=== PATIENT | female | born 1995 | race Caucasian/White ===

== ENCOUNTER 2019-07-10 16:23 | Emergency (ER) | payer MEDICARE, MEDICAID, SELFPAY ==
--- NOTE | 2019-07-10 16:39 | ED.URI ---
HPI - URI/Sore Throat General Chief Complaint: Upper Respiratory Infection Stated Complaint: Sore Throat,Ear Pain Time Seen by Provider: 07/10/19 16:39 Source: patient and RN notes reviewed History of Present Illness HPI Narrative: Is a 24-year-old female presents the urgent care with complaints of left ear pain, sore throat, rash on bilateral legs. Patient states that she was seen at [place] when the rash on the leg started and they treated her for scabies. Patient states that she took the medication and use the cream as appropriate. Patient states that the left ear pain and sore throat started a couple weeks ago after having her teeth pulled. Patient states she saw an ENT at [facility] and they told her she had CRPS. Patient states that she does have a follow-up with him in a month or 2. No other acute complaints. Patient has not taken anything for her symptoms. Patient appears irritable and anxious. Patient aware of the plan of care. Related Data Home Medications Medication Instructions Recorded Confirmed aripiprazole 10 mg DAILY 07/10/19 07/10/19 benztropine 0.5 mg DAILY 07/10/19 07/10/19 buspirone 5 mg BID 07/10/19 07/10/19 hydroxyzine HCl 25 mg Q6-8H PRN 07/10/19 07/10/19 sertraline 100 mg DAILY 07/10/19 07/10/19 Allergies Allergy/AdvReac Type Severity Reaction Status Date / Time No Known Allergies Allergy Unknown Verified 07/10/19 16:27 Review of Systems Review of Systems: Narrative: CONSTITUTIONAL: Denies fever, chills, or sweats. EYES: Denies visual changes, redness, or discharge. ENT: Reports of sore throat and left otalgia CARDIOVASCULAR: Denies chest pain, palpitations, or edema. RESPIRATORY: Denies cough or dyspnea. GASTROINTESTINAL: Denies abdominal pain, nausea, vomiting, or diarrhea. GENITOURINARY: Denies dysuria or hematuria. SKIN: Reports of rash on bilateral legs and posterior bra line MUSCULOSKELETAL: Denies back pain, joint pain, or myalgia. NEUROLOGIC: Denies headache, numbness, or weakness. . [facility] Social History Social History Gender identity (if verbalized by the patient): Female Comments At the time of my signature, I reviewed and agree with the nursing past medical, surgical, social, and family history. There is no relevant family history pertinent to the patient complaint. Exam Narrative: Exam Narrative: GENERAL: This is a well-nourished, well-developed patient, in no apparent distress. HEAD: normocephalic, atraumatic. EYES: PERRL. Sclera clear/white. Vision is grossly intact. EARS: External ears normal, auditory canals clear and without drainage, TMs normal without perforation. Hearing grossly intact. NOSE: External nose normal with no obvious nasal discharge, nares without redness, no rhinorrhea. THROAT: Mucous membranes moist, posterior pharynx clear. NECK: Neck supple CARDIOVASCULAR: Regular rate and rhythm without murmurs, gallops, or rubs. RESPIRATORY: Clear to auscultation. Breath sounds equal bilaterally. No wheezes, rales, or rhonchi. SKIN: Mild papular lesions noted to bilateral legs. Mild erythemic papular lesions noted to posterior bra line?possible scabies. Warm, intact with no suspicious lesions or rash, good texture and turgor. NEURO: awake, alert, and oriented to person, place and time. There were no obvious focal neurologic abnormalities. EXTREMITIES: No clubbing, cyanosis, or edema. Course Vital Signs Vital signs: Vital Signs Temperature 97.8 F 07/10/19 16:40 Pulse Rate 110 H 07/10/19 16:40 Respiratory Rate 16 07/10/19 16:40 Blood Pressure 117/82 07/10/19 16:40 Pulse Oximetry 99 07/10/19 16:40 Temperature 97.8 F 07/10/19 16:40 Pulse Rate 110 H 07/10/19 16:40 Respiratory Rate 16 07/10/19 16:40 Blood Pressure 117/82 07/10/19 16:40 Pulse Oximetry 99 07/10/19 16:40 Reviewed MDM - URI/Sore Throat MDM Narrative Medical decision making narrative: Reviewed lab results with the patient. She is aware that strep swab was negative. E
[2019-07-10 16:40] VITALS: BP 117/82; PULSE 110; RESP 16; TEMP 36.6; O2SAT 99
== END 2019-07-10 17:00 | disposition home or self-care (01) ==
PROVIDERS: Emergency Provider Nurse Practitioner Family; PCP Family Medicine
DX: R21 Rash and other nonspecific skin eruption (principal); J02.9 Acute pharyngitis, unspecified; F41.9 Anxiety disorder, unspecified; F32.9 Major depressive disorder, single episode, unspecified
CPT/HCPCS: 87081; 87880; 99203; G0463

== ENCOUNTER 2021-05-24 09:02 | Outpatient (RCR) | payer OTHER, SELFPAY ==
[2021-05-24 11:00] LABS: Hematocrit 29.8 % (37.0-47.0); Hemoglobin 10.1 g/dL (12.0-15.0); Mean Corpuscular HGB Conc 33.9 g/dl (32-36); Mean Corpuscular Hemoglobin 32.7 pg (26-34); Mean Corpuscular Volume 96.4 fl (80-100); Mean Platelet Volume 10.1 fl (7.4-10.4); Platelet Count Result 252 k/mm3 (150-375); Red Blood Count 3.09 M/mm3 (4.2-5.4); Red Cell Distribution Width 13.8 % (11.5-14.5); White Blood Count 11.1 K/mm3 (4.5-10.0)
[2021-05-24 11:14] LABS: Glucose 1 Hour PP 50gm Dose 204 mg/dL
[2021-05-24 12:51] LABS: HIV 1/2 Ab P24 Ag Result Negative (Negative)
[2021-05-26] MEDS: RHO(D) IMMUNE GLOBULIN 300 MCG/2 ML SYRINGE IM (11:21)
== END 2021-08-22 23:59 | disposition home or self-care (01) ==
LOC: ANHLAB 09:02
PROVIDERS: PCP Family Medicine; Visit Provider Obstetrics & Gynecology
DX: Z11.4 Encounter for screening for human immunodeficiency virus [HIV] (principal); Z29.13 Encounter for prophylactic Rho(D) immune globulin; O36.0190 Maternal care for anti-D [Rh] antibodies, unspecified trimester, not applicable or unspecified; Z3A.00 Weeks of gestation of pregnancy not specified
CPT/HCPCS: 36415; 82947; 85027; 85461; 86703; 90384; 96372; G0432; J2790

== ENCOUNTER 2021-06-03 09:18 | Outpatient (RCR) | payer OTHER, SELFPAY | END 2021-08-24 10:21 | disposition home or self-care (01) | LOC: ANHDMC 09:18 | PROVIDERS: PCP Family Medicine; Visit Provider Obstetrics & Gynecology | DX: O24.419 Gestational diabetes mellitus in pregnancy, unspecified control (principal); Z71.89 Other specified counseling; Z3A.00 Weeks of gestation of pregnancy not specified | CPT/HCPCS: 99199; G0108 ==

== ENCOUNTER 2021-06-07 14:54 | Outpatient (RCR) | payer OTHER, SELFPAY ==
[2021-06-07 15:53] VITALS: BP 106/64; PULSE 111
== END 2021-09-05 23:59 | disposition home or self-care (01) ==
LOC: ANHOBOP 14:54
PROVIDERS: PCP Family Medicine; Visit Provider Obstetrics & Gynecology
DX: O36.8330 Maternal care for abnormalities of the fetal heart rate or rhythm, third trimester, not applicable or unspecified (principal); Z3A.30 30 weeks gestation of pregnancy
CPT/HCPCS: 59025

== ENCOUNTER 2021-07-01 13:49 | Outpatient (RCR) | payer OTHER, SELFPAY | END 2021-07-01 13:50 | disposition home or self-care (01) | LOC: ANHDMC 13:49 | PROVIDERS: PCP Family Medicine; Visit Provider Obstetrics & Gynecology | DX: O24.419 Gestational diabetes mellitus in pregnancy, unspecified control (principal); Z3A.00 Weeks of gestation of pregnancy not specified | CPT/HCPCS: 99199 ==

== ENCOUNTER 2021-07-12 10:34 | Inpatient (IN) | payer OTHER, SELFPAY ==
[2021-07-12] VITALS (9 sets, daily range): BP systolic 113–118; BP diastolic 58–82; PULSE 92–105; TEMP 36.9; BMI 27.3
--- NOTE | ~2021-07-12 | US_ITS ---
EXAMINATION: US OB limited w BPP DATE: 07/12/2021 12:05 INDICATION: Bleeding during third trimester TECHNIQUE: Real-time pelvic ultrasound was performed. The interpreting radiologist was not present fo r the study. COMPARISON: None. FINDINGS: There is a single living fetus in vertex presentation. The placenta is posterior. heart rate is 149 beats per minute (bpm). The amniotic fluid index is 19.3 cm which is normal. Biophysical profile performed by the technologist: breathing (30 sec sustained breathing in 30 minutes): 2 out of 2 movement (3 gross body movements in 30 minutes): 2 out of 2 tone (one episode of yspyefl-lsuiekbyy-dzwrsvh limb movement): 2 out of 2 Amniotic fluid pocket (2 cm): 2 out of 2 Total score: 8 out of 8 IMPRESSION: 1. Single living fetus in vertex presentation. 2. Biophysical profile 8 out of 8. 3. Normal amniotic fluid index. Reviewed, dictated and finalized at location B. ER MACHINE
--- NOTE | 2021-07-12 10:54 | OBADM ---
This patient, Yara Avalos, admitted to the OB room OB Post 116 for observation. Patient/family oriented to hospital policies and general routines including ID bracelet, bed and alarms, visiting hours, pain management, procedures, bathroom and other care routines, personal items, smoking policy, room service/diet, and visiting hours. Patient/Family are encouraged to report perceived risks to care and to ask questions if they do not understand what they are told or what they should do.
--- NOTE | 2021-07-12 12:33 | PC.NURSE ---
1200- MD on unit. US reviewed. Orders to continuously monitor until 1500.
[2021-07-12] MEDS: LACTATED RINGERS 1,000 ML 125 ML IV CONT ×3 (15:11→23:30)
[2021-07-12] MEDS: BETAMETHASONE SOD PHOS/ACETATE 30 MG/5 ML VIAL 12 MG IM (15:12)
[2021-07-12] MEDS: AMPICILLIN 2 GM/NS 100 ML 2 GM/100 ML BAG IVPB (15:12)
--- NOTE | 2021-07-12 17:27 | PM.IMHP ---
H&P: HPI History of Present Illness Date/Time: 07/12/21 17:27 Yara is a 26yo @ 35.0wks (CRISTIAN 08[birth year]16[birth year]) who was sent to L&D from clinic. She was endorsing contractions/back pains. She had been taking ibuprofen to help with her pain. Her cervix was checked and she was found to be 1.5/75/-3. After the exam, she was found to have vaginal bleeding. She was sent to L&D for urgent US for placenta check/ANTHONY/BPP (all normal). She was placed on NST and found to have a severe variable decel to 60's lasting 1-2 minutes. She has continued to have contractions and had occasional variable and late decelerations. She was given betamethasone and started on ampicillin. She initially was not wantint to stay overnight for monitoring and did threaten to leave AMA. She was in pain and took one of her home doses of klonopin. She has been co-managed with [facility]; has been counseled on medications (supposed to be taking zoloft, buspar, and weaning down to the least doses of klonopin). She has had normal growths. Her is complicated by: - Severe bipolar disorder and anxiety; on zoloft 100mg, klonopin 1mg daily PRN, buspar 5mg TID - Gestational diabetes; unknown control; has not been checking sugars and missed DM educator appts - Rh negative; s/p rhogam Chief Complaint: vaginal bleeding Review of Systems Review of Systems: All systems reviewed & are unremarkable except as noted in HPI and below (HPI) [facility] Past Medical History Medical History Anxiety Bipolar 1 disorder Heart palpitations History of ovarian cyst IBS (irritable bowel syndrome) Surgical History Surgical History History of endoscopy [place] teeth extracted Social History Social History Smoking status: Current every day smoker Tobacco type: cigarettes Alcohol intake: never Substance use: never Gender identity (if verbalized by the patient): Female Sexual Orientation (if Verbalized by the Patient): Straight or Heterosexual Meds Home Medications and Allergies Home Medications Medication Instructions Recorded Confirmed Type aripiprazole 5 mg PO DAILY 07/10/19 07/12/21 History benztropine 0.5 mg DAILY 07/10/19 07/12/21 History buspirone 5 mg PO BID 07/10/19 07/12/21 History hydroxyzine HCl 25 mg Q6-8H PRN 07/10/19 07/12/21 History sertraline 100 mg DAILY 07/10/19 07/12/21 History Allergies Allergy/AdvReac Type Severity Reaction Status Date / Time No Known Allergies Allergy Unknown Verified 07/12/21 09:37 Vital Signs Vital Signs - 24 hr 07/12/21 10:52 07/12/21 11:00 07/12/21 11:15 Pulse Rate 105 H 104 H 101 H Blood Pressure 115/80 118/75 113/75 07/12/21 11:30 07/12/21 11:45 07/12/21 12:00 Pulse Rate 103 H 101 H 92 Blood Pressure 114/82 116/80 116/75 Exam Const: General: alert, awake, Physically active, anxious and uncomfortable Resp: Effort & Inspection: normal respiratory effort Cardio: Rate: regular rate GI: Inspection: non-distended GI Palp: No abdominal tenderness and Yes Soft to palpation : Other: FHT's: 135's/ mod charisma/ + accels/ occasional severe variable decels - cat 2 TOCO: ctx's q1-2 min Cervix: 1.5/75/-3-- small amount of blood noted on glove Membranes: intact Presentation: cephalic Skin: General skin exam: normal color Neuro: General: patient oriented x3 Extrem: General: normal to inspection Psych: Affect: Labile affect present and Anxious affect present Assessment and Plan Assessment and plan (1) Vaginal bleeding during : Code(s): O46.90 - Antepartum hemorrhage, unspecified, unspecified trimester Status: Acute (2) contractions: Code(s): O47.00 - False labor before 37 completed weeks of gestation, unspecified trimester Status: Acute Additional Plan - Vaginal bleeding has since stopped, US wa
--- NOTE | 2021-07-12 17:49 | WPDHPUPDATE1 ---
History and Physical Update Update Date/Time: 07/12/21 17:49 History and Physical has been reviewed, including an updated exam of the patient. There are NO changes in the patient's condition. Risks, benefits, and alternatives have been discussed and questions answered. Patient agrees to proceed with procedure.
[2021-07-12] MEDS: TERBUTALINE SULFATE 1 MG/ML VIAL 0.25 MG SUB-Q (17:55)
[2021-07-12] MEDS: AMPICILLIN 1 GM/NS 50 ML 1 GM/50 ML BAG IVPB ×2 (19:23→23:30)
[2021-07-12] MEDS: SERTRALINE HCL 50 MG TABLET 100 MG PO (23:30)
[2021-07-13] VITALS (67 sets, daily range): BP systolic 97–129; BP diastolic 59–73; PULSE 48–118; RESP 14–18; TEMP 36.2–36.7; O2SAT 95–100
[2021-07-13] MEDS: busPIRone HCL 5 MG TABLET PO ×2 (03:30→17:20)
[2021-07-13] MEDS: AMPICILLIN 1 GM/NS 50 ML 1 GM/50 ML BAG IVPB (05:26)
[2021-07-13] MEDS: LACTATED RINGERS 1,000 ML 125 ML IV CONT (07:00)
--- NOTE | 2021-07-13 07:00 | PM.OBPNLAB ---
Pain Control Date/time seen: 07/13/21 06:52 Pain control: tolerating well Contractions Monitor mode: External Contraction frequency: 1 (-4) Contraction pattern: Irregular Status status: Category ll Comments: Pt had a prolonged decel lasting 8 minutes down to 70's, with occasional late decelerations throughout the night Assessment and Plan Plan: Comments: - plan to proceed with pLTCS due to intolerance - s/p betamethasone x2 - ampicillin has continued overnight
--- NOTE | 2021-07-13 07:16 | WPDANESEPPF ---
Anes - Initial Pre Proc Eval Date/Time: 07/13/21 07:16 Surgeon: Malissa Houston MD Pre Op Diagnosis: bleeding Patient Data Age: 26 Gender: F Height: 1.6 m Weight: 70 kg Last Vital Signs Temp 36.9 C 07/12/21 23:30 Pulse 102 H 07/12/21 23:50 BP 117/58 L 07/12/21 23:50 Allergies Allergy/AdvReac Type Severity Reaction Status Date / Time No Known Allergies Allergy Unknown Verified 07/12/21 09:37 Home Medications Medication Instructions Recorded Confirmed Type aripiprazole 5 mg PO DAILY 07/10/19 07/12/21 History benztropine 0.5 mg DAILY 07/10/19 07/12/21 History buspirone 5 mg PO BID 07/10/19 07/12/21 History hydroxyzine HCl 25 mg Q6-8H PRN 07/10/19 07/12/21 History sertraline 100 mg DAILY 07/10/19 07/12/21 History Laboratory Tests 07/13/21 07/13/21 07:09 07:09 WBC Pending RBC Pending Hgb Pending Hct Pending MCV Pending MCH Pending MCHC Pending RDW Pending Plt Count Pending MPV Pending Immature Gran % (Auto) Pending Neut % (Auto) Pending Lymph % (Auto) Pending [place] % (Auto) Pending Eos % (Auto) Pending Baso % (Auto) Pending Lymph # (Auto) Pending [place] # (Auto) Pending Eos # (Auto) Pending Baso # (Auto) Pending Abs Immat Gran (auto) Pending Absolute Neuts (auto) Pending Absolute Nucleated RBC Pending Nucleated RBC % Pending RPR Pending Patient hx anesthesia problems: none Family hx anesthesia problems: none Results Review: All pre-operative results and documents have been reviewed as part of the pre-operative evaluation. [facility] Past Medical History Medical History Anxiety Bipolar 1 disorder Heart palpitations History of ovarian cyst IBS (irritable bowel syndrome) Surgical History Surgical History History of endoscopy [place] teeth extracted Social History Social History Smoking status: Current every day smoker Tobacco type: cigarettes Alcohol intake: never Substance use: never Gender identity (if verbalized by the patient): Female Sexual Orientation (if Verbalized by the Patient): Straight or Heterosexual Anes - Eval Final PreProcedure Day of Procedure 07/13/21 07:16 Patient weight: overweight Heart: regular rate and rhythm Lungs: clear to auscultation Airway: Mallampati scale class II Neurological: alert and oriented Last oral intake: >/= 8 hours ASA classification: III Emergent: no Anesthetic plan: proceed Anesthesia type and monitoring: regional spinal and standard monitoring Results Review: All pre-operative results and documents have been reviewed as part of the pre-operative evaluation. Informed Consent: The patient's anesthetic plan and its attendant risks and benefits were discussed with the patient/family/POA. Questions were solicited and answers provided to the satisfaction of the patient/family/POA.
[2021-07-13 07:18] LABS: Basophils Absolute Auto 0.1 K/mm3 (0.0-0.1); Basophils Percent Auto 0.4 % (0.2-1.2); Eosinophils Absolute Auto 0.3 K/mm3 (0-0.3); Eosinophils Percent Auto 2.9 % (0-4.4); Hematocrit 35.6 % (37.0-47.0); Hemoglobin 11.3 g/dL (12.0-15.0); Immature Granulocyte Absolute 0.05 K/mm3 (0.00-0.031); Immature Granulocyte Percent A 0.4 % (0-0.5); Lymphocytes Absolute Auto 1.99 K/mm3 (0.9-3.2); Lymphocytes Percent Auto 17.7 % (18.3-44.2); Mean Corpuscular HGB Conc 31.7 g/dl (32-36); Mean Corpuscular Hemoglobin 32.4 pg (26-34); Mean Platelet Volume 11.9 fl (7.4-10.4); Monocytes Absolute Auto 1.3 K/mm3 (0.1-0.6); Monocytes Percent Auto 11.2 % (2.6-8.5); Neutrophils Absolute Auto 7.6 K/mm3 (1.3-6.7); Neutrophils Percent Auto 67.4 % (45.5-73.1); Platelet Count Result 225 k/mm3 (150-375); Red Blood Count 3.49 M/mm3 (4.2-5.4); Red Cell Distribution Width 13.5 % (11.5-14.5); White Blood Count 11.2 K/mm3 (4.5-10.0)
[2021-07-13] MEDS: ceFAZolin 2 GM/D5W 50 ML 2 GM/50 ML BAG IVPB (07:35)
[2021-07-13 07:36] LABS: Glucose Point of Care 87 mg/dl (65-105)
[2021-07-13 07:50] LABS: Amphetamine Screen Urine Positive (Negative); Barbiturate Screen Urine Negative (Negative); Benzodiazepines Screen Urine Positive (Negative); Cannabinoid Screen Urine Negative (Negative); Cocaine Screen Urine Negative (Negative); Methadone Screen Urine Negative (Negative); Opiate Screen Urine Negative (Negative); Phencyclidine Screen Urine Negative (Negative)
--- NOTE | 2021-07-13 08:33 | LDADM ---
This patient, Yara Avalos, was admitted to OB Post 116 on 07/13/21 at 07:07. Plans for labor, pain management and were discussed with patient. Patient/family oriented to hospital policies and general routines including ID bracelet, bed and alarms, visiting hours, pain management, procedures, bathroom and other care routines, personal items, smoking policy, room service/diet and guest tray routines, infant security routines, and visiting hours. Patient/Family are encouraged to report perceived risks to care and to ask questions if they do not understand what they are told or what they should do. See OBIX for further documentation.
--- NOTE | 2021-07-13 08:45 | PM.OBPRVD ---
OB - Delivery Note Procedure Delivery date: 07/13/21 Procedure: Procedures Operation Date: 07/13/21 07:30 <No data on this case meets the specified criteria> events: Labor < 37 Weeks (+ vaginal bleeding ) and Placental Insufficiency (prolonged and late decelerations) Delivery monitor: external FHT and external uterine Route of delivery: Indication for instrumentation: nonreassuring FHR tracing Specimen: Yes (placenta) Quantitative Blood Loss (ml): 340 Anesthesia type: Spinal Disposition: floor Baby Date of : 07/13/21 Time of : 07:55 Weeks of gestation at delivery: 35 (.1) gender: Male Weight (pounds): 5 Weight (ounces): 9 presentation: vertex position: Left Occiput Transverse Placenta delivery description: Expressed (concerns for marginal placenta abruption) cord vessel description: 3 Vessels score one minute: 7 score five minutes: 9 Narrative: She was counseled on all risks and benefits in detail. She was taken to the operating room where spinal epidural was placed. She was then prepped and draped in the normal sterile fashion. She received 2g Ancef and a time out was performed. A Pfannenstiel incision was made in the skin and carried down to the underlying fascia. The fascia was nicked on either side of the midline and the fascial incision was extended laterally and superiorly. The fascia was then elevated and the underlying rectus muscles were dissected off the fascia, superiorly and inferiorly. The rectus muscles were then in the midline and the peritoneum was entered bluntly. Once adequate exposure was obtained, a Mobius self retractor was placed within the abdomen. A bladder flap was created. A low transverse incision was made on the lower uterine segment and clear fluid was noted. The occiput was brought to the hysterotomy and the head was easily delivered. The shoulder and body then followed without complications. The had spontaneous cry and the mouth and nose were bulb suctioned. The cord was clamped and cut and the was handed off to the awaiting pediatric nurse. A segment of the cord was collected for cord gases. The remaining cord blood was collected for typing. With pitocin infusing, the placenta delivered with gentle traction on the cord without complications, the posterior edge was found to be low into the lower posterior uterus and delivered first (concern for abruption). The uterus was then cleared out of all clots and debris using a clean, moist lap. The hysterotomy was then repaired in a running fashion using 0 Vicryl. A second layer imbricating suture was then made using 0 Vicryl. The hysterotomy was found to be hemostatic and good uterine tone was noted. The bilateral adnexa were examined and found to be normal. The pelvis was cleared of all clots and fluid. The Mobius retractor was removed from the abdomen. The peritoneum, muscle, and fascia were examined and made hemostatic with bovie cautery. The fascia was then repaired using a 0 Vicryl suture in a running fashion. The subcutaneous tissue was then irrigated and made hemostatic with bovie cautery. The subcutaneous tissue was then reapproximated using 2-0 Vicryl. The skin was then closed using 4-0 Monocryl in a running subcuticular fashion. Sponge, lap, needle and instrument counts were correct at the end of the procedure x2. The patient tolerated the procedure well and was taken to recovery in a stable condition. [facility] Delivery Billing Delivery Delivery: Delivery Charge
[2021-07-13] MEDS: OXYTOCIN 30 UNITS/NS 500 ML 30 UNITS/500 ML BAG 125 UNITS IV CONT (09:16)
[2021-07-13] MEDS: DOCUSATE SODIUM 100 MG CAPSULE PO (11:12)
[2021-07-13] MEDS: KETOROLAC 30 MG/ML VIAL (*BKC) IV PUSH ×2 (11:14→18:01)
--- NOTE | 2021-07-13 11:43 | PC.NURSE ---
Patient transferred to post room #291 via stretcher. Support person present. Oriented to unit, room, information board, rooming in, admission packet and security measures. Patient verbalizes understanding.
[2021-07-13] MEDS: DEXTROSE 5%/0.45% SOD CHL 1,000 ML 125 ML IV CONT (13:24)
--- NOTE | 2021-07-13 16:17 | PCCCNOTE ---
Addendum entered by JENNI Mae 07/16/21 11:05: Spoke to Yuli with DCFS this morning. Home visit and interviews with family have taken place. DCFS will continue to follow for resources/services at home. Yuli indicates at this time, that baby should discharge home with Mother at expected discharge tomorrow on 07/17/21. Spoke with RNTsering to notify of above. Addendum entered by JENNI Mae 07/16/21 07:56: Intake ID#[id number] Original Note: SS consult. Received referral for positive UDS. Pt. is positive for amphetamines and benzodiazepines. She is on zoloft, klonopin and buspar prescribed by her PMD, Dr. Santiago and Psychiatrist, Dr. Garduno at [facility] for bipolar and anxiety diagnosis. She does follow up with Psychiatrist every 3 months [address] [facility] once a month. She denies use of any other substances or unprescribed medications that may cause amphetamine positive. She does indicate having been around her cousin a lot recently who smokes meth. She does indicate to nursing that her cousin takes Aterol. She has no other children. She denies any DCFS history. She lives with her mother and father as well as father of baby. She states all being supportive. She states having all needed items to care for baby at home. Reported pt. situation to DCFS. Spoke to Jona with DCFS. Liliam with DCFS to be present at hospital [place] [facility] to meet with pt. Following.
[2021-07-13 16:49] LABS: Rapid Plasma Reagin Non-Reactive (NonReactive)
[2021-07-13] MEDS: MULTIVIT/MIN/PREN/FOL AC/IRON TABLET 1 TAB PO (17:21)
[2021-07-13] MEDS: hydrOXYzine HCL 25 MG TABLET PO (17:55)
[2021-07-13] MEDS: clonazePAM (*CRX) 0.5 MG TABLET 1 MG PO (17:55)
[2021-07-14 01:11] VITALS: BP 92/51; PULSE 95; RESP 18; TEMP 36.6
[2021-07-14] MEDS: KETOROLAC 30 MG/ML VIAL (*BKC) IV PUSH (03:54)
[2021-07-14 04:00] VITALS: BP 100/55; PULSE 78; RESP 18; TEMP 36.6
[2021-07-14] MEDS: SERTRALINE HCL 50 MG TABLET 100 MG PO ×2 (04:04→21:05)
[2021-07-14 05:41] LABS: Basophils Percent Auto 0.1 % (0.2-1.2); Hematocrit 27.1 % (37.0-47.0); Immature Granulocyte Absolute 0.15 K/mm3 (0.00-0.031); Immature Granulocyte Percent A 0.7 % (0-0.5); Lymphocytes Absolute Auto 1.81 K/mm3 (0.9-3.2); Lymphocytes Percent Auto 8.7 % (18.3-44.2); Mean Corpuscular HGB Conc 33.2 g/dl (32-36); Mean Corpuscular Volume 99.3 fl (80-100); Mean Platelet Volume 12.3 fl (7.4-10.4); Monocytes Absolute Auto 1.6 K/mm3 (0.1-0.6); Monocytes Percent Auto 7.8 % (2.6-8.5); Neutrophils Absolute Auto 17.3 K/mm3 (1.3-6.7); Neutrophils Percent Auto 82.7 % (45.5-73.1); Platelet Count Result 221 k/mm3 (150-375); Red Blood Count 2.73 M/mm3 (4.2-5.4); White Blood Count 20.9 K/mm3 (4.5-10.0)
--- NOTE | 2021-07-14 07:28 | PM.OBPNVD ---
OB - PN: Subj Subjective Date/time seen: 07/14/21 07:28 Narrative: POD#1 Yara reports doing well today. Her bleeding is manager of sustainability. Her pain is controlled. She is passing gas. She has not attempted regular diet yet; plans to order breakfast. She just had her ryan removed at 0500 she has not voided or ambulated yet. She denies any issues with her incision. She is bottle feeding. She would like her son circumcised. OB - PN: Obj Data Labs CBC & Chem 7: 07/14/21 04:01 Labs: Laboratory Results - last 24 hr 07/13/21 07/13/21 07/13/21 07:09 07:09 07:10 WBC RBC Hgb Hct MCV MCH MCHC RDW Plt Count MPV Immature Gran % (Auto) Neut % (Auto) Lymph % (Auto) [place] % (Auto) Eos % (Auto) Baso % (Auto) Lymph # (Auto) [place] # (Auto) Eos # (Auto) Baso # (Auto) Abs Immat Gran (auto) Absolute Neuts (auto) Absolute Nucleated RBC Nucleated RBC % POC Capillary Glucose Urine Opiates Screen Negative Urine Methadone Screen Negative Ur Barbiturates Screen Negative Ur Phencyclidine Scrn Negative Ur Amphetamine Screen Positive A U Benzodiazepines Scrn Positive A Urine Cocaine Screen Negative U Cannabinoids Screen Negative RPR Non-reactive Blood Type A Negative Antibody Screen Positive Antibody Identification Passive Due to RH Imm Glob Antigen Identification TNP ALFREDO, IgG Interpret Not Performed ALFREDO, Poly Interpret Negative ALFREDO, Complement Interp Not Performed 07/13/21 07/14/21 07/14/21 07:32 04:01 04:01 WBC 20.9 H RBC 2.73 L Hgb 9.0 L Hct 27.1 L MCV 99.3 MCH 33.0 MCHC 33.2 RDW 13.0 Plt Count 221 MPV 12.3 H Immature Gran % (Auto) 0.7 H Neut % (Auto) 82.7 H Lymph % (Auto) 8.7 L [place] % (Auto) 7.8 Eos % (Auto) 0.0 Baso % (Auto) 0.1 L Lymph # (Auto) 1.81 [place] # (Auto) 1.6 H Eos # (Auto) 0.0 Baso # (Auto) 0.0 Abs Immat Gran (auto) 0.15 H Absolute Neuts (auto) 17.3 H Absolute Nucleated RBC 0.0 Nucleated RBC % 0.0 POC Capillary Glucose 87 Urine Opiates Screen Urine Methadone Screen Ur Barbiturates Screen Ur Phencyclidine Scrn Ur Amphetamine Screen U Benzodiazepines Scrn Urine Cocaine Screen U Cannabinoids Screen RPR Blood Type A Negative Antibody Screen TNP Antibody Identification Antigen Identification ALFREDO, IgG Interpret ALFREDO, Poly Interpret ALFREDO, Complement Interp OB - PN A/P Assessment and Plan (1) S/P primary low transverse : Code(s): Z98.891 - History of uterine scar from previous surgery Status: Acute Plan Plan: routine care Comments: - Pt to attempt to void at 0900 - regular diet; stay hydrated - continue home meds/pain meds - ambulation encouraged - consult with care coordination/DCFS pending Time Spent With Patient Time: Total time spent is greater than 50% in coordination of care (as documented) at patient's floor/unit and/or counseling patient: Review of Systems Constitutional: Constitutional: Denies chills, Denies fever(s) and Denies headache(s) Eyes: Eyes: Denies change in vision ENT: Denies dizziness and Denies headache(s) Cardiovascular: Cardiovascular: Denies chest pain, Denies palpitations and Denies dyspnea Respiratory: Respiratory: Denies cough and Denies dyspnea Gastrointestinal: Gastrointestinal: Denies nausea and Denies vomiting Genitourinary: Comments: normal bleeding Neurologic: Denies dizziness and Denies headache(s) Endocrine: Endocrine: Denies palpitations Exam Const: General: cooperative, comfortable and no acute distress Orientation/consciousness: patient oriented x3 Resp: Effort & Inspection: normal respiratory effort Auscultation: clear to auscultation bilaterally Cardio: Rate: regular rate GI: Inspection: non-distended and incision (covered with iggy
[2021-07-14 07:35] VITALS: BP 106/54; PULSE 75; RESP 16; TEMP 37.3; O2SAT 98
--- NOTE | 2021-07-14 07:40 | WPDANLDPN2 ---
Anes-Prog Note L&D Date/Time: 07/14/21 07:40 Comfortable throughout: section Neuraxial method: spinal Epidural/Spinal procedure site: clean & non-tender Neuro status: Neuro function grossly intact. Cardiovascular status: normal Respiratory status: normal Airway patency: baseline Mental status: baseline Post-Op hydration status: normal Vital Signs: Last Vital Signs Temp 97.9 F 07/14/21 04:00 Pulse 78 07/14/21 04:00 Resp 18 07/14/21 04:00 BP 100/55 L 07/14/21 04:00 Pulse Ox 98 07/13/21 15:45 Pain score (VAS): 0 I/O: Intake & Output 07/13/21 07/13/21 07/14/21 15:59 23:59 07:59 Intake Total 550 Output Total 1362 Balance -812 Post-procedural complaints: none Patient feedback: Patient satisfied with anesthetic care.
--- NOTE | 2021-07-14 07:41 | WPDANLDNPN2 ---
Anes-Prog Note L&D-Neuraxial Date/Time: 07/14/21 07:41 Neuraxial medications: intrathecal PF morphine Opiod-related complaints: none Patient feedback: Patient satisfied with post-operative pain management.
[2021-07-14 08:00] VITALS: PULSE 75; RESP 16; O2SAT 98
[2021-07-14] MEDS: IBUPROFEN 600 MG TABLET PO ×2 (09:59→16:04)
[2021-07-14] MEDS: HYDROcodone/acetaminophen (*CRX) 5-325 MG TABLET 1 TAB PO (10:00)
[2021-07-14] MEDS: DOCUSATE SODIUM 100 MG CAPSULE PO ×2 (10:01→17:38)
[2021-07-14] MEDS: busPIRone HCL 5 MG TABLET PO ×2 (10:05→17:38)
[2021-07-14] MEDS: POLYSACCHARIDE IRON COMPLEX 150 MG CAPSULE PO ×2 (10:29→17:38)
--- NOTE | 2021-07-14 12:58 | PC.NURSE ---
Hector Torres, [facility], arrived and spoke with patient regarding testing positive for Amphetamines. Patient lives with mother and father of baby. Primary utilities service investigator with [facility] is Liliam Silva. She or Hector will be in contact with Care Coordination with regard to discharge of baby. [facility] will be doing a house check and interview with those living in home.
[2021-07-14] MEDS: HYDROcodone/acetaminophen (*CRX) 10-325 MG TABLET 1 TAB PO ×2 (16:08→21:05)
[2021-07-14] MEDS: clonazePAM (*CRX) 0.5 MG TABLET 1 MG PO (17:38)
[2021-07-14 19:45] VITALS: BP 106/47; PULSE 95; RESP 16; TEMP 36.8
[2021-07-15] MEDS: HYDROcodone/acetaminophen (*CRX) 10-325 MG TABLET 1 TAB PO ×3 (04:30→15:54)
[2021-07-15] MEDS: IBUPROFEN 600 MG TABLET PO ×3 (04:30→19:50)
[2021-07-15] MEDS: MULTIVIT/MIN/PREN/FOL AC/IRON TABLET 1 TAB PO (07:27)
[2021-07-15] MEDS: POLYSACCHARIDE IRON COMPLEX 150 MG CAPSULE PO ×2 (07:27→15:54)
[2021-07-15] MEDS: DOCUSATE SODIUM 100 MG CAPSULE PO ×2 (07:27→15:54)
[2021-07-15] MEDS: busPIRone HCL 5 MG TABLET PO ×2 (07:27→21:00)
[2021-07-15] MEDS: RHO(D) IMMUNE GLOBULIN 300 MCG/2 ML SYRINGE IM (07:28)
[2021-07-15 08:50] VITALS: BP 114/70; PULSE 72; RESP 16; TEMP 37.2; O2SAT 97
--- NOTE | 2021-07-15 09:57 | P.PNOB_ITS ---
OB - PN: Subj Subjective Date/time seen: 07/15/21 09:57 Narrative: POD#2 Yara reports doing well today. 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 Her pain is controlled. She is tolerating regular diet, voiding, passing gas, and ambulating without issues. She denies any issues with her incision. She is bottle feeding. OB - PN: Obj Data Labs CBC & Chem 7: 07/14/21 04:01 Labs: Laboratory Results - last 24 hr 07/14/21 04:01 Blood Type A Negative Antibody Screen TNP Screen Negative Baby's Blood Type Ab pos Baby's ALFREDO Positive Doses of RhIg Required 1 OB - PN A/P Assessment and Plan (1) S/P primary low transverse : Code(s): Z98.891 - History of uterine scar from previous surgery Status: Acute (2) Vaginal bleeding during : Code(s): O46.90 - Antepartum hemorrhage, unspecified, unspecified trimester Status: Acute Plan day: 2 Plan: routine care and discharge home (tomorrow) Comments: - Pelvic rest; take meds as prescribed - Incision care/no heavy lifting-- remove dressing 07/19/21 - ER return precautions: fever, n/v/abd pain, bleeding, HTN Time Spent With Patient Time: Total time spent is greater than 50% in coordination of care (as documented) at patient's floor/unit and/or counseling patient: Review of Systems Constitutional: Constitutional: Denies chills, Denies fever(s) and Denies headache(s) Eyes: Eyes: Denies change in vision ENT: Denies dizziness and Denies headache(s) Cardiovascular: Cardiovascular: Denies chest pain, Denies palpitations and Den ies dyspnea Respiratory: Respiratory: Denies cough and Denies dyspnea Gastrointestinal: Gastrointestinal: Denies nausea and Denies vomiting Genitourinary: Comments: normal bleeding Neurologic: Denies dizziness and Denies headache(s) Endocrine: Endocrine: Denies palpitations Exam Const: General: cooperative, comfortable and no acute distress Orientation/consciousness: patient oriented x3 Resp: Effort & Inspection: normal respiratory effort Auscultation: clear to auscultation bilaterally Cardio: Rate: regular rate GI: Inspection: non-distended and incision (covered with clean dressing) GI Palp: Yes abdominal tenderness (appropriate) and Yes Soft to palpation Auscultation: normal bowel sounds : Other: fundus firm Skin: General skin exam: normal color Neuro: General: patient oriented x3 Extrem: General: normal to inspection Psych: Appearance: grossly normal Affect: normal affect Attitude: cooperative
[2021-07-15] MEDS: HYDROcodone/acetaminophen (*CRX) 5-325 MG TABLET 1 TAB PO ×2 (11:12→19:50)
--- NOTE | 2021-07-15 11:14 | PC.NURSE ---
Patient viewed the discharge video Mother & Baby Care, The First Two Weeks . Patient was given the opportunity and encouraged to ask questions. Patient verbalized understanding of information shared and has been given the mother/baby guide for home reference.
[2021-07-15 18:40] VITALS: BP 93/55; PULSE 81; RESP 16; TEMP 36.5
[2021-07-15] MEDS: clonazePAM (*CRX) 0.5 MG TABLET 1 MG PO (21:00)
[2021-07-15] MEDS: SERTRALINE HCL 50 MG TABLET 100 MG PO (21:00)
[2021-07-16] MEDS: busPIRone HCL 5 MG TABLET PO (08:51)
[2021-07-16] MEDS: HYDROcodone/acetaminophen (*CRX) 5-325 MG TABLET 1 TAB PO (08:51)
[2021-07-16] MEDS: POLYSACCHARIDE IRON COMPLEX 150 MG CAPSULE PO (08:51)
[2021-07-16] MEDS: MULTIVIT/MIN/PREN/FOL AC/IRON TABLET 1 TAB PO (08:51)
[2021-07-16] MEDS: DOCUSATE SODIUM 100 MG CAPSULE PO (08:51)
[2021-07-16] MEDS: IBUPROFEN 600 MG TABLET PO (08:52)
--- NOTE | 2021-07-16 10:11 | PM.OBDSVD ---
DS: Admitting Diagnosis Discharge Date 07/16/21 Admitting Diagnosis contractions; vaginal bleeding; heart decelerations; DS: Discharge Diagnosis Discharge Diagnosis (1) S/P primary low transverse : Code(s): Z98.891 - History of uterine scar from previous surgery Status: Acute (2) contractions: Code(s): O47.00 - False labor before 37 completed weeks of gestation, unspecified trimester Status: Acute (3) Vaginal bleeding during : Code(s): O46.90 - Antepartum hemorrhage, unspecified, unspecified trimester Status: Acute (4) Gestational diabetes: Qualifiers: Gestational diabetes mellitus control: unspecified Trimester: third trimester Qualified Code(s): O24.419 - Gestational diabetes mellitus in , unspecified control Code(s): O24.419 - Gestational diabetes mellitus in , unspecified control Status: Acute OB - DS: Summary OB Procedures : NST, Ultrasound and PTL Mgmt OB Procedures Intrapartum: low cervical, transverse OB Procedures: : RHo (D) lg Peripartum Data Delivery Method: Section Procedures: Procedures Operation Date: 07/13/21 07:30 Actual Procedure Side Surgeon p Section Malissa Houston MD complications: none [place] 1: Gender: Male Disposition of : home (DCFS involved) Status at Discharge Functional status at discharge: independent ambulation Overall status at discharge: patient is back to baseline Time Spent with Patient Time attestation: Total time spent providing and/or coordinating discharge services: Time spent: Less than 30 minutes Exam Const: General: cooperative, healthy appearing, comfortable and no acute distress Orientation/consciousness: patient oriented x3 Resp: Effort & Inspection: normal respiratory effort Auscultation: clear to auscultation bilaterally Cardio: Rate: regular rate GI: Inspection: non-distended and incision (covered with clean dressing) GI Palp: No abdominal tenderness and Yes Soft to palpation Auscultation: normal bowel sounds : Other: fundus firm Skin: General skin exam: normal color Neuro: General: patient oriented x3 Extrem: General: normal to inspection Psych: Appearance: grossly normal Affect: normal affect Attitude: cooperative DS: Data Data Completed and Pending Pending studies at discharge: Pending at discharge 07/13/21 08:48 Surgical [PTH] Routine Labs on day of discharge: Labs from last 24 hours 07/14/21 04:01 Blood Type A Negative Antibody Screen TNP Screen Negative Baby's Blood Type Ab pos Baby's ALFREDO Positive Doses of RhIg Required 1 Discharge Plan Discharge Attending physician on discharge: Malissa Houston Discharging Clinician: Malissa Houston Anticipated Discharge Date/Time: 07/16/21 10:00 Patient Disposition: Home, Self-Care Activity: may shower, may drive after 2 weeks and pelvic rest Diet: regular Discharge Instructions: Education: Mom and Baby Guide Given to: Mother Follow-Up: Call your delivering provider's office for an appointment to be seen in: 2 Weeks Mom and baby should come to the [facility] for the follow-up appointment. Appointment Date/Time: July 19, 2021 at 12:30 pm What to expect at your follow-up visit: Physical Assessment Call [phone] if you are unable to keep your appointment time. BREAST CARE: * Wear a snug supportive bra. * For engorgement discomfort: Bottle Feeding: * May apply ice packs ABDOMINAL INCISION: (if applicable) * Allow incision to air dry * Do NOT use lotions for powders on your incision * When showering, allow soap and water to run over the incision, but do not wash incision Remove dressing Feb. 8 EPISIOTOMY/PERINEAL CARE: * Until bleeding stops, use your rhiannon bottle after uri
[2021-07-19 12:27] VITALS: BP 109/69; PULSE 99; RESP 20; TEMP 37.2; O2SAT 98
== END 2021-07-16 12:55 | disposition home or self-care (01) | DRG 788 ==
LOC: ANHOBPP 07-13 07:10 → ANHOB2 07-13 11:08
PROVIDERS: Admitting Provider Obstetrics & Gynecology; PCP Family Medicine; Visit Provider Obstetrics & Gynecology
PROC: 10D00Z1 Extraction of Products of Conception, Low, Open Approach (ICD-10-PCS; CPT 59514; principal; 2021-07-13 07:30)
DX: O36.5130 Maternal care for known or suspected placental insufficiency, third trimester, not applicable or unspecified (principal); O99.344 Other mental disorders complicating childbirth; F41.8 Other specified anxiety disorders; O24.429 Gestational diabetes mellitus in childbirth, unspecified control; O99.334 Smoking (tobacco) complicating childbirth; F17.210 Nicotine dependence, cigarettes, uncomplicated; O76 Abnormality in fetal heart rate and rhythm complicating labor and delivery; O32.2XX0 Maternal care for transverse and oblique lie, not applicable or unspecified; Z3A.35 35 weeks gestation of pregnancy; Z37.0 Single live birth
CPT/HCPCS: 36415; 76815; 76819; 80307; 82948; 85025; 85461; 86592; 86850; 86880; 86900; 86901; 88307; 90384; A9270; J0131; J0290; J0690; J0702; J1885; J2274; J2590; J2790; J3105; J7120